=== PATIENT | female | born 1970 | race African-American/Black ===

== ENCOUNTER 2017-05-30 15:51 | Emergency (ER) | payer OTHER, BC ==
[2017-05-30] MEDS ORDERED: Diphtheria,Pertussis(Acell),Tetanus Vaccine 0.5 ML Syringe IM ONE (16:21)
--- NOTE | 2017-05-30 16:24 | EDM.PDOC ---
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 Review of Systems: As per history of present illness and below otherwise all systems reviewed and negative. Past medical history: As per history of present illness and as reviewed below otherwise noncontributory. Surgical history: As per history of present illness and as reviewed below otherwise noncontributory. Social history: No reported history of drug or alcohol abuse. Family history: As per history of present illness and as reviewed below otherwise noncontributory. Physical exam: Alert and oriented female who is answering questions appropriately in full sentences no shortness of breath is noted HEENT: Atraumatic, normocehpalic, pupils reactive, negative for conjunctival pallor or scleral icterus,, neck supple, nontender, trachea midline. Lungs: Clear to auscultation, breath sounds equal bilaterally, chest non tender. Heart: S1S2, regular, negative for clicks, rubs, or JVD. Abdomen: Soft, nondistended, nontender. Negative for masses or hepatossplenmegaly. Negative for costovertebral tenderness. Pelvis: Stable nontender. Genitourinary: Deferred. Rectal: Deferred Extremities: Atraumatic, negative for cords or calf pain. Neurovascular unremarkable. Neuro: Awake, alert, oriented. Cranial nerves II through XII unremarkable. Cerebellum unremarkable. Motor and sensory unremarkable throughout. Exam nonfocal. Diagnostics: [Hepatitis C AB Hep B surface AB QNT HIV care AG/AB 4th generation 12] Therapeutics: [Adacel] Impression: [Needlestick] Plan: []Discharged home Recommended that you have laboratory values reevaluated in 6 months Definitive disposition and diagnosis as appropriate pending reevaluation and review of above. - Related Data Allergies Allergy/AdvReac Type Severity Reaction Status Date / Time No Known Allergies Allergy Verified 05/30/17 16:51 Home Meds: Home Meds ALPRAZolam [Xanax] 2 mg PO DAILY 05/30/17 [History] Cyclobenzaprine [Flexeril] 5 mg PO DAILY 05/30/17 [History] Hydrocodone/Acetaminophen [[place] 10-325 Tablet] 100 mg PO DAILY 05/30/17 [ History] Losartan [Cozaar] 100 mg PO DAILY 05/30/17 [History] ED ROS GENERAL - Review of Systems Review Of Systems: ROS reveals no pertinent complaints other than HPI. ED EXAM, GENERAL - Physical Exam Exam: See Below Course - Vital Signs Last Recorded V/S: Last Vital Signs Temp 36.4 C 05/30/17 16:49 Pulse 84 05/30/17 17:59 Resp 16 05/30/17 17:59 BP 125/78 05/30/17 17:59 Pulse Ox 98 05/30/17 16:49 - Orders/Labs/Meds Orders: Active Orders 24 hr Category Date Time Status Vaccines to be Administered [RC] PER UNIT ROUTINE Care 05/30/17 16:21 Active HEP B SURFACE AB,QNT [REF] Stat Lab 05/30/17 16:33 Received HEPATITIS C AB [REF] Stat Lab 05/30/17 16:33 Received Labs: Laboratory Tests 05/30/17 Range/Units 16:33 HIV 1&2 Ag/Ab, 4th Gen 0.1 (<1.0) Meds: Medications Discontinued Medications Generic Name Dose Route Start Last Admin Trade Name Freq PRN Reason Stop Dose Admin Diphtheria/Tetanus/Acell Pertussis 0.5 ml 05/30/17 16:21 05/30/17 16:30 Adacel IM 05/30/17 16:22 0.5 ml .ONCE ONE Administration Departure - Departure Time of Disposition: 18:22 Disposition: Home, Self-Care 01 Condition: Good Clinical Impression: Needlestick injury accident Qualifiers: Encounter type: initial encounter Qualified Code(s): W27.3XXA - Contact with needle (sewing), initial encounter - Discharge Information Referrals: PCP,None [Primary Care Provider] - Additional Instructions: The following information is given to patients seen in the emergency department who are being discharged to home. This information is to outline your options for follow-up care. We provide all patients seen in our emergency department with a follow-up referral. The need for follow-up, as well as the timing and circumstances, are variable depending upon the specifics of your emergency department visit. If you don't have a primary care physician on staff, we will provide you with a referral. We always advise you to contact your personal physician following an emergency department visit to inform them of the circumstance of the visit and for follow-up with them and/or the need for any referrals to a consulting specialist. The emergency department will also refer you to a specialist when appropriate. This referral assures that you have the opportunity for followup care with a specialist. All of these measure are taken in an effort to provide you with optimal care, which includes your followup. Under all circumstances we always encourage you to contact your private physician who remains a resource for coordinating your care. When calling for followup care, please make the office aware that this follow-up is from your recent emergency room visit. If for any reason you are refused follow-up, please contact the [facility] emergency department at and asked to speak to the emergency department charge nurse. Please follow-up and have laboratory values reevaluated in 6 months When the rest of the lab values are returned we will notify - My Orders Last 24 Hours: My Active Orders 05/30/17 16:21 Vaccines to be Administered [RC] PER UNIT ROUTINE 05/30/17 16:33 HEP B SURFACE AB,QNT [REF] Stat HEPATITIS C AB [REF] Stat - Assessment/Plan Last 24 Hours: My Active Orders 05/30/17 16:21 Vaccines to be Administered [RC] PER UNIT ROUTINE 05/30/17 16:33 HEP B SURFACE AB,QNT [REF] Stat HEPATITIS C AB [REF] Stat
[2017-05-30 18:52] VITALS: BP 125/77
== END 2017-05-30 18:30 | disposition home or self-care (01) ==
LOC: MW.ED 15:51
DX: S61.230A Puncture wound without foreign body of right index finger without damage to nail, initial encounter (principal); Z23 Encounter for immunization; Z79.899 Other long term (current) drug therapy; W27.3XXA Contact with needle (sewing), initial encounter; Y99.0 Civilian activity done for income or pay
CPT/HCPCS: 36415; 86706; 86803; 87389; 90471; 90715; 99282; 99283-25